=== PATIENT | female | born 1975 | race Caucasian/White ===

== ENCOUNTER 2017-03-26 23:21 | Emergency (ER) | payer MEDICARE, OTHER, BC ==
[~2017-03-26 23:21] MED LIST: ALPRAZOLAM PO; AMLODIPINE BESIL1 GM PO; AMOXICILLIN875 MG PO; AMOXIL875 MG PO; BENZONATATE PO; BLOOD PRESSURE MED; BP MEDS X2; DICLOFENAC PO; DOXYCYCLINE HY100 M1 PO; ELIMITE60 GM TOP; FLEXERIL PO; FLEXERIL10 MG PO; GLUCOPHAGE500 MG PO; HCTZ PO; HYDROCODONE BI473 M1 PO; IBUPROFEN PO; IBUPROFEN800 MG PO; INVOKANA100 MG PO; KEFLEX500 MG PO; LAMISIL AF DEFE30 GM TP; LISINOPRIL PO; LISINOPRIL20 MG PO; LOPID600 MG PO; METFORMIN HCL500 M1 PO; METFORMIN HCL500 M2 PO; METFORMIN PO; NAPROSYN500 MG PO; NEURONTIN PO; NYSTATIN15 GM OINT EXT; OMEPRAZOLE20 M2 PO; PEPCID AC20 M2 PO; PHENERGAN DM1 ML PO; PRILOSEC PO; PRILOSEC20 M1 PO; PRILOSEC40 MG; SKELAXIN PO; ULTRAM PO; VOLTAREN50 MG PO; XANAX0.5 M1; XYZAL5 MG PO; ZESTORETIC 20/11 TAB PO; ZESTRIL10 M1 PO; ZITHROMAX1 G/PKT PO; ZOFRAN PO
[2017-03-26] MEDS ORDERED: ATENOLOL25 MG PO (23:28)
[2017-03-27 00:05] LABS: BASOPHIL# 0.1 X10e3 (0-0.3); HEMOGLOBIN 13.5 gm/dL (12.0-16.0)
[2017-03-27 00:07] LABS: BASOPHIL% 0.6 % (0-2.5); EOSINOPHIL# 0.3 X10e3 (0-0.7); EOSINOPHIL% 2.4 % (0.0-7.0); LYMPHOCYTE# 3.6 X10e3 (1.0-3.5); LYMPHOCYTE% 34.3 % (17.0-45.0); MEAN CELL VOLUME 85.3 FL (83-96); MEAN CORPUSCULAR HEMOGLOBIN 28.7 PG (28-34); MEAN CORPUSCULAR HGB CONC 33.7 g/dL (30-36); MEAN PLATELET VOLUME 9.1 FL (6.5-11.5); MONOCYTE# 0.9 X10e3 (0-1.0); NEUTROPHIL# 5.5 X10e3 (1.5-7.1); NEUTROPHIL% 53.7 % (40-75); PLATELET COUNT 251 X10e3 (140-420); RED BLOOD COUNT 4.69 X10e (3.90-5.30); RED CELL DISTRIBUTION WIDTH 13.5 % (11.0-15.5); WHITE BLOOD COUNT 10.3 X10e3 (4.0-10.5)
[2017-03-27 00:08] LABS: URINE APPEARANCE CLEAR; URINE BILIRUBIN NEG (NEG); URINE BLOOD NEG (NEG); URINE COLOR YELLOW; URINE GLUCOSE NEG (NORM); URINE KETONE NEG (NEG); URINE LEUKOCYTE ESTERASE NEG (NEG); URINE NITRATE NEG (NEG); URINE PROTEIN NEG (NEG); URINE SOURCE CLEAN CATCH; URINE SPECIFIC GRAVITY <=1.005 (1.003-1.035); URINE UROBILINOGEN 0.2 MG/DL (NORM)
[2017-03-27 00:11] LABS: DIFF IND NO
[2017-03-27 00:13] LABS: MICRO INDICATED? NO
[2017-03-27 00:33] LABS: ALBUMIN SERUM 4.1 g/dL (3.5-5.0); ALKALINE PHOSPHATASE 64 U/L (32-92); ALT (SGPT) 30 U/L (10-40); AST (SGOT) 23 U/L (10-42); BILIRUBIN, DIRECT <0.1 mg/dL (0.0-0.2); BILIRUBIN,INDIRECT 0.1 mg/dL (0.0-0.9); BILIRUBIN,TOTAL 0.2 mg/dL (0.2-2.0); BLOOD UREA NITROGEN 15 mg/dL (9-23); BUN/CREATININE RATIO 21.42; CARBON DIOXIDE 28 mmol/L (22-31); CHLORIDE 98 mmol/L (100-111); CREATININE SERUM 0.7 mg/dL (0.6-1.4); GLOM FILT RATE Estimated 106.9 mL/min (>60); GLUCOSE FASTING 184 mg/dL (70-110); LIPASE 49 U/L (22-51); PROTEIN TOTAL SERUM 7.7 g/dL (6.0-8.3); SODIUM 133 mmol/L (135-145)
[2017-03-27] MEDS ORDERED: ZOFRAN ODT4 MG PO (01:02)
[2017-03-27] MEDS ORDERED: BENTYL10 MG PO (01:02)
== END 2017-03-27 01:08 | disposition home or self-care (01) ==
LOC: SED 23:21
PROVIDERS: Physician Assistant
DX: R10.9 Unspecified abdominal pain (principal); E11.9 Type 2 diabetes mellitus without complications; I10 Essential (primary) hypertension; Z90.710 Acquired absence of both cervix and uterus; Z79.84 Long term (current) use of oral hypoglycemic drugs; Z79.899 Other long term (current) drug therapy
CPT/HCPCS: 36415; 80048; 80076; 81003; 83690; 85025; 99284

== ENCOUNTER 2017-04-14 14:19 | Emergency (ER) | payer MEDICARE, OTHER ==
[~2017-04-14 14:19] MED LIST changes: +ATENOLOL25 MG PO; +BENTYL10 MG PO; +ZOFRAN ODT4 MG PO
[2017-04-14] MEDS ORDERED: TENORMIN25 M1 (14:29)
== END 2017-04-14 15:33 | disposition home or self-care (01) ==
LOC: SED 14:19
DX: J04.0 Acute laryngitis (principal)
CPT/HCPCS: 87651; 99283

== ENCOUNTER 2017-06-18 22:12 | Emergency (ER) | payer MEDICARE, OTHER ==
[~2017-06-18] VITALS: Ht 157.5 cm; Wt 113.4 kg
[~2017-06-18 22:12] MED LIST changes: +TENORMIN25 M1
[2017-06-18] MEDS ORDERED: XANAX0.5 MG PO (22:33)
== END 2017-06-19 01:02 | disposition home or self-care (01) ==
LOC: SED 22:12
DX: B35.3 Tinea pedis (principal); K21.9 Gastro-esophageal reflux disease without esophagitis; E11.9 Type 2 diabetes mellitus without complications; Z79.899 Other long term (current) drug therapy; Z79.84 Long term (current) use of oral hypoglycemic drugs
CPT/HCPCS: 99282